=== PATIENT | male | born 1955 | race Caucasian/White ===

== ENCOUNTER 2019-12-05 11:56 | Emergency (ER) | payer MEDICAID ==
[~2019-12-05] VITALS: Ht 180.3 cm; Wt 75.0 kg
[2019-12-05 12:00] VITALS: BP 139/97; Ht 180.3 cm; Wt 75.0 kg
[2019-12-05] MEDS ORDERED: OMEPRAZOLE20 M1 PO (12:22)
[2019-12-05] MEDS ORDERED: CYCLOBENZAPRINE5 MG PO (13:10)
== END 2019-12-05 13:27 | disposition home or self-care (01) ==
LOC: D.ER 11:56
DX: M25.522 Pain in left elbow (principal); K21.9 Gastro-esophageal reflux disease without esophagitis; V19.9XXA Pedal cyclist (driver) (passenger) injured in unspecified traffic accident, initial encounter; Y93.55 Activity, bike riding; Y92.9 Unspecified place or not applicable; R07.81 Pleurodynia; M54.2 Cervicalgia; R51 Headache

== ENCOUNTER 2019-12-19 15:29 | Emergency (ER) | payer MEDICAID ==
[~2019-12-19] VITALS: Ht 180.3 cm; Wt 77.3 kg
[~2019-12-19 15:29] MED LIST: CYCLOBENZAPRINE5 MG PO; OMEPRAZOLE20 M1 PO
[2019-12-19 15:37] VITALS: Ht 180.3 cm; Wt 77.3 kg
[2019-12-19] MEDS ORDERED: CLINDAMYCIN HC300 MG PO ×2 (16:32→16:33)
[2019-12-19 17:05] VITALS: BP 122/72
== END 2019-12-19 17:05 | disposition home or self-care (01) ==
LOC: D.ER 15:29
DX: L03.114 Cellulitis of left upper limb (principal); K21.9 Gastro-esophageal reflux disease without esophagitis

== ENCOUNTER 2020-03-06 02:11 | Emergency (ER) | payer MEDICAID ==
[~2020-03-06] VITALS: Ht 180.3 cm; Wt 79.5 kg
[~2020-03-06 02:11] MED LIST changes: +CLINDAMYCIN HC300 MG PO
[2020-03-06 02:19] VITALS: BP 142/83; Ht 180.3 cm; Wt 79.5 kg
[2020-03-06] MEDS ORDERED: ULTRAM50 MG PO (02:23)
[2020-03-06] MEDS ORDERED: FLOMAX0.4 MG PO (02:23)
== END 2020-03-06 02:55 | disposition home or self-care (01) ==
LOC: D.ER 02:11
DX: H57.11 Ocular pain, right eye (principal); M79.671 Pain in right foot; H10.9 Unspecified conjunctivitis; K21.9 Gastro-esophageal reflux disease without esophagitis